=== PATIENT | female | born 1945 | race Caucasian/White ===

== ENCOUNTER → 2016-09-07 | Outpatient (CLI) | payer MEDICARE, BC ==
[~2016-09-07] MED LIST: ACTOS 15MG TAB15 MG PO; AZILECT1 M1 PO; AZILECT1 MG PO; CAL CARB FORTE PO; CIPRO 500MG TA500 MG PO; CO Q-1010 M1 PO; CO Q-1010 MG PO; COZAAR 25MG25 MG/TAB PO; CRANBERRY1 CAP PO; CYMBALTA 60MG60 MG PO; FISH OIL500 MG PO; FLOMAX 0.40.4 MG/CAP PO; IRON325 M1 PO; JANUVIA50 MG PO; KELP TABLETS1 TAB PO; KELP1 TAB PO; LANTUS100 U/ML SC; LASIX 20MG TABL20 MG PO; LEVAQUIN 5500 MG/TA1 PO; LIPITOR 40MG TA40 MG PO; LUTEIN PO; LUTEIN20 M1 PO; MIRALAX PA17 GM/Dose PO; MULTI VITAMINS1 TAB PO; NATURAL IRON65 MG PO; NATURE'S BLEN1000 MG PO; NYSTATIN OR100 MU/ML PO; OSCAL 500 TAB500 MG PO; OYSTER SHELL1000 MG PO; PRENATAL1 TA1 PO; PROTONIX 40MG T40 MG PO; PROVENTIL0.09 MG/A1 IH; REQUIP 1MG T1 MG/TAB PO; SINEMET 10/101 UDTAB PO; SODIUM BIC650 MG/TAB PO; VITAMIN C500 MG PO; VITAMIN D1000 IU PO; ZITHROMAX500 M2 PO; ZOFRAN 4MG T4 MG/TAB PO; [UNRECOGNIZED DRUG - OTHER]
[2016-09-07 15:24] LABS: BASO # 0.1 (0.0-0.2); BASO % 0.5 % (0.0-2.0); EOS # 0.2 (0.0-0.7); EOS % 1.9 % (0-4.0); GRAN # 7.9 (1.4-6.5); GRAN % 73.1 % (42.2-75.2); HEMATOCRIT 38.2 % (37.0-47.0); HEMOGLOBIN 12.4 g/dl (12.5-16.0); LYMPH % 18.4 % (20.0-51.0); MEAN CELL VOLUME 90 fl (80.0-100.0); MEAN CORPUSCULAR HEMOGLOBIN 29 pg (27.0-31.0); MEAN CORPUSCULAR HGB CONC 33 g/dl (33.0-37.0); MEAN PLATELET VOLUME 9.8 fl (7.4-10.4); MONO # 0.6 (0.1-0.6); MONO % 5.6 % (1.7-9.3); PLATELET COUNT 213 K/mm3 (130-400); RED BLOOD COUNT 4.27 M/mm3 (4.10-5.30); REDCELL DISTRIBUTION WIDTH-CV 13.2 % (11.5-14.5); WHITE BLOOD COUNT 10.8 K/mm3 (4.8-10.8)
[2016-09-07 15:40] LABS: ADJUSTED CALCIUM 9.5 mg/dL (8.4-10.2); ALBUMIN 3.9 gm/dL (3.5-5.0); BILIRUBIN,TOTAL 1.1 mg/dL (0.0-1.0); CALCIUM 9.4 mg/dL (8.4-10.2); CREATININE, serum 2.04 mg/dL (0.52-1.25); POTASSIUM 4.1 mmol/L (3.4-5.0); TOTAL PROTEIN 7.4 gm/dL (6.4-8.2)
== END ==
LOC: COL.LAB 14:57
PROVIDERS: Emergency Medicine
DX: N28.89 Other specified disorders of kidney and ureter (principal)

== ENCOUNTER → 2017-07-29 | Outpatient (CLI) | payer MEDICARE, BC | LOC: COL.PUL 11:06 | DX: I08.8 Other rheumatic multiple valve diseases (principal); N18.1 Chronic kidney disease, stage 1; R06.02 Shortness of breath; R53.82 Chronic fatigue, unspecified; Z87.891 Personal history of nicotine dependence ==